=== PATIENT | female | born 1990 | race African-American/Black ===

== ENCOUNTER 2023-02-14 09:32 | Emergency (ER) | payer BC ==
[~2023-02-14] VITALS: Ht 177.8 cm; Wt 80.3 kg
[2023-02-14 09:57] VITALS: BP 128/78
[2023-02-14] MEDS ORDERED: ACETAMINOPHEN 325 MG TAB PO ONE (10:05)
--- NOTE | 2023-02-14 10:12 | NUR ---
xray at bedside
--- NOTE | 2023-02-14 10:32 | NUR ---
32YO FEMALE PT C/O TIGHT R CHEST PAIN X1DAY. REPORTS SUDDEN CONSTANT ONSET ALONG W/ COUGH AND CONGESTION. DRY COUGH PRESENT. OSIEL LUNG SOUNDS. PT CURRENTLY 22WEEKS BEVERLY 06/16/23 . DENIES ABD PAIN, N/V/D, FEVER , CHILLS OR ANYONE SICK AT HOME. PT [id number], ON HUMAN RESOURCE INTERN. HOB POSITIONED PER COMFORT HX: DENIES ALLERGIES: PENICILLIN
--- NOTE | 2023-02-14 11:00 | NUR ---
The patient's care was reviewed and supervised by KAREN CRUZ RN.
[2023-02-14] MEDS ORDERED: LID5T TP (11:17)
--- NOTE | 2023-02-14 11:23 | NUR ---
Patient does not wish to proceed with medical care recommended by MD MENDOZA. Patient given information related to possible complications, up to and including , which could occur as a result of leaving hospital at this time. Patient verbalizes understanding of risks involved leaving against medical advice.
--- NOTE | 2023-02-14 11:23 | NUR ---
Note shahladelmi in ED - 02/14/23 at 1819 by PHSEP Patient discharged with v/s stable. Written and verbal after care instructions FOR NON SPECIFIC CHEST PAIN given and explained. Patient alert, oriented and verbalized understanding of instructions. Ambulatory with steady gait. All questions addressed prior to discharge. ID band removed. Patient advised to follow up with PMD. Rx of LIDOCAINE HYD given. Opportunity to ask questions provided and answered.
== END 2023-02-14 11:23 | disposition home or self-care (01) ==
LOC: MED 09:32
DX: R07.89 Other chest pain (principal); R05.9 Cough, unspecified; R09.81 Nasal congestion; R09.89 Other specified symptoms and signs involving the circulatory and respiratory systems; Z88.0 Allergy status to penicillin; Z79.899 Other long term (current) drug therapy
CPT/HCPCS: 71045; 93005; 99283